=== PATIENT | female | born 1955 | race American Indian/Alaskan Native ===

== ENCOUNTER 2018-06-20 23:11 | Emergency (ER) | payer OTHER ==
[2018-06-20] MEDS ORDERED: ASPIRIN PO ONE (23:49)
--- NOTE | 2018-06-21 00:23 | XRay Report ---
PROCEDURE: XR CHEST 1V AP TECHNIQUE: Chest radiograph single view. HISTORY: Chest Pain COMPARISONS: None . FINDINGS: Heart: Normal. Mediastinum/Vessels: Normal. Lungs/Pleural space: Normal. Bony thorax: No acute osseous abnormality. Life support devices: None. IMPRESSION: No acute cardiopulmonary abnormality. This document is electronically signed by Daysi Pugh DO., June 21 2018 12:21:39 AM ET
[2018-06-21 00:27] LABS: Basophils % (Auto) 0.2 % (0.0-1.8); Eosinophils % (Auto) 0.2 % (0.0-4.3); Hematocrit 40.6 % (30.3-42.9); Hemoglobin 13.6 gm/dl (10.1-14.3); Lymphocytes # (Auto) 0.5 K/mm3 (1.2-5.4); Lymphocytes % (Auto) 10.4 % (13.4-35.0); Mean Corpuscular HGB Conc 33 % (30-34); Mean Corpuscular Volume 82 fl (79-97); Monocytes # (Auto) 0.2 K/mm3 (0.0-0.8); Monocytes % (Auto) 4.6 % (0.0-7.3); Platelet Count 133 K/mm3 (140-440); Red Blood Count 4.98 M/mm3 (3.65-5.03); Red Cell Distribution Width 14.4 % (13.2-15.2)
[2018-06-21 00:43] LABS: BUN/Creatinine Ratio 28; Blood Urea Nitrogen 22 mg/dL (7-17); Calcium 10.2 mg/dL (8.4-10.2); Hemolysis Index 15
[2018-06-21 00:45] LABS: Alanine Aminotransferase 18 units/L (7-56)
[2018-06-21 00:59] LABS: Bilirubin,Direct < 0.2 mg/dL (0-0.2)
[2018-06-21] MEDS ORDERED: NACL 0.9% 1000 ML 1,000 ML IV ONE (04:08)
[2018-06-21] MEDS ORDERED: IMODIUM PO ONE (04:11)
[2018-06-21] MEDS ORDERED: ZOFRAN ODT PO ONE (04:11)
--- NOTE | 2018-06-21 04:19 | Emergency Department Report ---
ED Abdominal Pain HPI - General Chief Complaint: Chest Pain Stated Complaint: CHEST PAIN, NAUSEA, DIZZY Time Seen by Provider: 06/21/18 04:03 Source: patient Mode of arrival: Ambulatory Limitations: No Limitations - History of Present Illness Initial Comments: Mrs. Spear is a 62 yo female with DM, HTN, dyslipidemia who presents with copious diarrhea, nausea, and heart burn. Acid taste in mouth. Symptoms began 11 AM. She then developed chest pain radiating down arm. She feels dehydrated. NO abdominal pain. NO chest pain currently. She has had > 14 stools in the past 12 hours. -: Gradual, This afternoon Severity scale (0 -10): 8 Quality: cramping, burning Consistency: now resolved Improves With: nothing Worsens With: nothing Context: other (no sick contacts) - Related Data Home Medications Medication Instructions Recorded Confirmed Last Taken Lisinopril [Zestril TAB] 40 mg PO BID 11/16/14 05/25/15 05/25/15 amLODIPine [Norvasc] 10 mg PO BID 11/16/14 05/25/15 05/25/15 hydroCHLOROthiazide [Hctz] 12.5 mg PO QDAY 05/25/15 05/25/15 05/25/15 Previous Rx's Medication Instructions Recorded Last Taken Type Azithromycin [Zithromax TAB] 250 mg PO QDAY #5 tablet 05/25/15 Unknown Rx Acetaminophen/Codeine [Tylenol 1 tab PO Q6H PRN #10 tab 01/23/17 Unknown Rx /Codeine # 3 tab] Baclofen 20 mg PO BID #20 tablet 01/23/17 Unknown Rx Diclofenac Sodium 50 mg PO BID #30 tablet. 01/23/17 Unknown Rx Loperamide HCl [Loperamide] 2 tab PO QID 2 Days #16 capsule 06/21/18 Unknown Rx Promethazine [Phenergan TAB] 25 mg PO Q6HR PRN #5 tab 06/21/18 Unknown Rx Allergies Allergy/AdvReac Type Severity Reaction Status Date / Time No Known Allergies Allergy Unverified 11/16/14 17:24 ED Review of Systems ROS: Stated complaint: CHEST PAIN, NAUSEA, DIZZY Other details as noted in HPI Comment: All other systems reviewed and negative Constitutional: malaise. denies: fever Cardiovascular: chest pain Gastrointestinal: nausea, diarrhea ED Past Medical Hx - Past Medical History Previous Medical History?: Yes Hx Hypertension: Yes (Type 2) Hx Diabetes: Yes Additional medical history: vaginal pregnancies x 2 - Surgical History Past Surgical History?: Yes Additional Surgical History: PILONIDAL CYST - Social History Smoking Status: Never Smoker Substance Use Type: None - Medications Home Medications: Home Medications Medication Instructions Recorded Confirmed Last Taken Type Lisinopril [Zestril TAB] 40 mg PO BID 11/16/14 05/25/15 05/25/15 History amLODIPine [Norvasc] 10 mg PO BID 11/16/14 05/25/15 05/25/15 History Azithromycin [Zithromax TAB] 250 mg PO QDAY #5 tablet 05/25/15 Unknown Rx hydroCHLOROthiazide [Hctz] 12.5 mg PO QDAY 05/25/15 05/25/15 05/25/15 History Acetaminophen/Codeine [Tylenol 1 tab PO Q6H PRN #10 tab 01/23/17 Unknown Rx /Codeine # 3 tab] Baclofen 20 mg PO BID #20 tablet 01/23/17 Unknown Rx Diclofenac Sodium 50 mg PO BID #30 tablet.dr 01/23/17 Unknown Rx Loperamide HCl [Loperamide] 2 tab PO QID 2 Days #16 capsule 06/21/18 Unknown Rx Promethazine [Phenergan TAB] 25 mg PO Q6HR PRN #5 tab 06/21/18 Unknown Rx ED Physical Exam - General Limitations: No Limitations General appearance: alert, in no apparent distress - Head Head exam: Present: atraumatic, normocephalic - Eye Eye exam: Present: normal appearance - ENT ENT exam: Present: mucous membranes moist - Neck Neck exam: Present: normal inspection, full ROM - Respiratory Respiratory exam: Present: normal lung sounds bilaterally. Absent: respiratory distress, wheezes, rales, rhonchi - Cardiovascular Cardiovascular Exam: Present: regular rate, normal rhythm, normal heart sounds. Absent: systolic murmur, diastolic murmur, rubs, gallop - GI/Abdominal GI/Abdominal exam: Present: soft, normal bowel sounds. Absent: distended, tenderness, guarding, rebound - Extremities Exam Extremities exam: Present: normal inspection - Back Exam Back exam: Present: normal inspection - Neurological Exam Neurological exam: Present: alert, oriented X3 - Psychiatric Psychiatric exam: Present: normal affect, normal mood - Skin Skin exam: Present: warm, dry, intact, normal color. Absent: rash ED Course Vital Signs 06/20/18 06/20/18 23:23 23:48 Temperature 99.1 F 99.1 F Pulse Rate 98 H 101 H Respiratory 18 18 Rate Blood Pressure 143/90 Blood Pressure 143/90 [Left] O2 Sat by Pulse 95 97 Oximetry ED Medical Decision Making - Lab Data Result diagrams: 06/20/18 23:57 06/20/18 23:57 Laboratory Results - last 24 hr 06/20/18 06/20/18 06/21/18 23:57 23:57 00:00 WBC 4.8 RBC 4.98 Hgb 13.6 Hct 40.6 MCV 82 MCH 27 L MCHC 33 RDW 14.4 Plt Count 133 L Lymph % (Auto) 10.4 L Larue % (Auto) 4.6 Eos % (Auto) 0.2 Baso % (Auto) 0.2 Lymph # 0.5 L Larue # 0.2 Eos # 0.0 Baso # 0.0 Seg Neutrophils % 84.6 H Seg Neutrophils # 4.1 Sodium 136 L Potassium 4.0 Chloride 104.1 Carbon Dioxide 21 L Anion Gap 15 BUN 22 H Creatinine 0.8 Estimated GFR > 60 BUN/Creatinine Ratio 28 Glucose 142 H Calcium 10.2 Total Bilirubin 0.50 Direct Bilirubin < 0.2 Indirect Bilirubin 0.3 AST 18 ALT 18 Alkaline Phosphatase 66 Troponin T < 0.010 Total Protein 6.9 Albumin 4.0 Albumin/Globulin Ratio 1.4 Lipase 10 L 06/21/18 02:56 WBC RBC Hgb Hct MCV MCH MCHC RDW Plt Count Lymph % (Auto) Larue % (Auto) Eos % (Auto) Baso % (Auto) Lymph # Larue # Eos # Baso # Seg Neutrophils % Seg Neutrophils # Sodium Potassium Chloride Carbon Dioxide Anion Gap BUN Creatinine Estimated GFR BUN/Creatinine Ratio Glucose Calcium Total Bilirubin Direct Bilirubin Indirect Bilirubin AST ALT Alkaline Phosphatase Troponin T < 0.010 Total Protein Albumin Albumin/Globulin Ratio Lipase - EKG Data 06/21/18 04:16 EKG obtained 2316 Normal sinus rhythm rate 95 bpm normal axis normal intervals diffuse T-wave flattening no ST elevation - Radiology Data Radiology results: report reviewed Chest x-ray: No acute process according to radiology report - Medical Decision Making Mrs. Spear presents with diarrhea, heartburn, nausea. Suspect viral syndrome vs food poisoning. Atypical for ACS. Given supportive therapy IVF and antiemetic. Rx: promethazine and loperamide Troponin x 2 negative ruled out fo NE Labs reviewed CBC chemistry within normal limits Critical care attestation.: If time is entered above; I have spent that time in minutes in the direct care of this critically ill patient, excluding procedure time. ED Disposition Clinical Impression: Diarrhea, Dehydration, Heart burn Disposition: DC-01 TO HOME OR SELFCARE Is pt being admited?: No Does the pt Need Aspirin: No Condition: Stable Instructions: Acute Diarrhea (ED) Prescriptions: Loperamide HCl [Loperamide] 2 tab PO QID 2 Days #16 capsule Promethazine [Phenergan TAB] 25 mg PO Q6HR PRN #5 tab PRN Reason: Nausea Referrals: LIA WAN MD [Primary Care Provider] - 3-5 Days
[2018-06-21 06:30] VITALS: BP 122/74
== END 2018-06-21 05:58 | disposition home or self-care (01) ==
LOC: ED 23:11
DX: E86.0 Dehydration (principal); R12 Heartburn; E11.9 Type 2 diabetes mellitus without complications; I10 Essential (primary) hypertension; Z79.899 Other long term (current) drug therapy
CPT/HCPCS: 36415; 71045; 80048; 80076; 83690; 84484; 85025; 93005; 93010; 96360; 99284; J7030; Q0162